=== PATIENT | female | born 1955 | race Caucasian/White ===

== ENCOUNTER 2020-05-17 11:29 | Inpatient (IN) | payer OTHER, MEDICARE ==
[~2020-05-17] VITALS: Ht 160 cm; Wt 63.0 kg
[2020-05-17 11:37] VITALS: BP 129/96
[2020-05-17] MEDS ORDERED: BLOOD PRESSURE MED (11:41)
[2020-05-17 12:28] LABS: ABSOLUTE LYMPHOCYTES 1.1 thou/uL (0.8-5.3); ABSOLUTE MONOCYTES 1.1 thou/uL (0.0-1.2); ABSOLUTE NEUTROPHILS 11.5 thou/uL (1.6-8.1); BASOPHILS 0.2 %; EOSINOPHILS 0.1 %; HEMATOCRIT 40.7 % (37.0-47.0); HEMOGLOBIN 13.9 gm/dL (12.0-15.0); MCHC 34.3 g/dL (28.0-37.0); MCV 93.3 fL (80.0-100.0); MONOCYTES 7.9 %; MPV 8.2 fl. (7.2-11.1); NUCLEATED RBCS 0 /100WBC; PLATELET COUNT* 204 thou/uL (150-400); POLYS 83.8 %; RBC 4.36 mil/uL (4.20-5.00); RDW-CV 13.4 % (10.5-14.5); WBC 13.7 thou/uL (4.0-11.0)
[2020-05-17 12:58] LABS: CALCIUM 8.8 mg/dL (8.5-10.1); CREATININE 0.8 mg/dL (0.6-1.3); POTASSIUM 3.6 mmol/L (3.5-5.1)
[2020-05-17 13:03] LABS: ALBUMIN 3.4 g/dL (3.4-5.0); TOTAL BILIRUBIN 0.6 mg/dL (<0.1-1.0); TOTAL PROTEIN 7.4 g/dL (6.4-8.2)
[2020-05-17 14:15] VITALS: BP 124/72
[2020-05-17 14:19] LABS: URINE BILIRUBIN NEGATIVE (Negative); URINE BLOOD NEGATIVE (Negative); URINE CLARITY CLEAR; URINE COLOR YELLOW; URINE GLUCOSE-RANDOM NEGATIVE (Negative); URINE KETONES 1+ (Negative); URINE LEUKOCYTES-REFLEX NEGATIVE (Negative); URINE NITRITE-REFLEX NEGATIVE (Negative); URINE PROTEIN NEGATIVE (Negative); URINE UROBILINOGEN 0.2 E.U./dl (0.2-1.0)
[2020-05-17 14:25] VITALS: BP 110/63
[2020-05-17] MEDS ORDERED: LISINOPRIL-HCT1 EACH PO (15:59)
[2020-05-17 16:00] VITALS: BP 91/50
[2020-05-17] MEDS ORDERED: CRESTOR20 MG PO (16:00)
--- NOTE | 2020-05-17 16:00 | EKG ---
[place] [address] ELECTROCARDIOGRAM REPORT Name: MANAN WOODELL Room: [address] ADM IN ..#: [id number] Admission: 05/17/20 Attend Phys: Tess Amaya, Discharge: Date of : 59 Date of Service: 05/17/20 1147 Report #: [id number] THIS REPORT FOR: //name// [facility] ED Test Date: 2020-05-17 Test Time: 11:47:23 Pat Name: MANAN WOOD Department: Room: [facility] Gender: F Business Unit Director: TERI : 1955 Requested By: Thang Coombs Order Number: [id number] MD: Estevan Boucher Measurements Intervals [place] Rate: 115 P: 68 CT: 129 QRS: 24 QRSD: 90 T: 42 QT: 315 QTc: 436 Interpretive Statements Sinus tachycardia Low voltage, extremity leads Abnormal R-wave progression, early transition Baseline wander in lead(s) II,III,aVF,V4 No previous ECG available for comparison Electronically Signed On 05-17-2020 16:00:11 CDT by Estevan Boucher [email or web address] <ELECTRONICALLY SIGNED> By: Estevan Boucher MD, FACC 05/17/20 1600 1147 1147 Estevan Boucher MD, FACC /EPI
[2020-05-17 19:30] VITALS: BP 112/51
[2020-05-18 00:30] VITALS: BP 100/58
[2020-05-18 06:09] LABS: HEMATOCRIT 33.8 % (37.0-47.0); MCH 32.1 pg (26.0-34.0); MCHC 34.3 g/dL (28.0-37.0); MCV 93.6 fL (80.0-100.0); MPV 8.9 fl. (7.2-11.1); RBC 3.62 mil/uL (4.20-5.00); RDW-CV 13.7 % (10.5-14.5); WBC 9.1 thou/uL (4.0-11.0)
[2020-05-18 06:14] LABS: HEMOGLOBIN 11.6 gm/dL (12.0-15.0)
[2020-05-18 06:27] LABS: ALBUMIN 2.6 g/dL (3.4-5.0); CALCIUM 8.2 mg/dL (8.5-10.1); CREATININE 0.8 mg/dL (0.6-1.3); MAGNESIUM 1.9 mg/dL (1.8-2.4); POTASSIUM 3.4 mmol/L (3.5-5.1); TOTAL BILIRUBIN 0.4 mg/dL (<0.1-1.0); TOTAL PROTEIN 6.1 g/dL (6.4-8.2)
[2020-05-18 07:50] VITALS: BP 111/62
[2020-05-18 11:38] VITALS: BP 91/50
[2020-05-18 16:00] VITALS: BP 94/58
[2020-05-18 19:30] VITALS: BP 124/64
[2020-05-19] VITALS: BP 102/51
[2020-05-19 04:00] VITALS: BP 110/62
[2020-05-19 05:51] LABS: ABSOLUTE EOSINOPHILS 0.2 thou/uL (0.0-0.7); ABSOLUTE LYMPHOCYTES 1.7 thou/uL (0.8-5.3); ABSOLUTE MONOCYTES 0.7 thou/uL (0.0-1.2); ABSOLUTE NEUTROPHILS 4.7 thou/uL (1.6-8.1); BASOPHILS 0.5 %; EOSINOPHILS 2.7 %; HEMATOCRIT 33.7 % (37.0-47.0); HEMOGLOBIN 11.5 gm/dL (12.0-15.0); LYMPHOCYTES 23.6 %; MCH 32.2 pg (26.0-34.0); MCHC 34.1 g/dL (28.0-37.0); MCV 94.3 fL (80.0-100.0); MONOCYTES 8.9 %; MPV 9.2 fl. (7.2-11.1); NUCLEATED RBCS 0 /100WBC; PLATELET COUNT* 174 thou/uL (150-400); POLYS 64.3 %; RBC 3.58 mil/uL (4.20-5.00); RDW-CV 13.7 % (10.5-14.5); WBC 7.3 thou/uL (4.0-11.0)
[2020-05-19 06:03] LABS: CALCIUM 8.9 mg/dL (8.5-10.1); CREATININE 0.8 mg/dL (0.6-1.3); POTASSIUM 3.7 mmol/L (3.5-5.1)
[2020-05-19 08:00] VITALS: BP 132/64
[2020-05-19 12:00] VITALS: BP 112/63
[2020-05-19 16:00] VITALS: BP 114/74
[2020-05-19 19:30] VITALS: BP 110/55
[2020-05-20] VITALS: BP 120/69
[2020-05-20 04:00] VITALS: BP 124/62
[2020-05-20 05:06] LABS: ABSOLUTE BASOPHILS 0.1 thou/uL (0.0-0.2); ABSOLUTE EOSINOPHILS 0.1 thou/uL (0.0-0.7); ABSOLUTE LYMPHOCYTES 1.9 thou/uL (0.8-5.3); ABSOLUTE MONOCYTES 0.8 thou/uL (0.0-1.2); ABSOLUTE NEUTROPHILS 7.5 thou/uL (1.6-8.1); BASOPHILS 0.5 %; EOSINOPHILS 0.7 %; HEMOGLOBIN 10.9 gm/dL (12.0-15.0); LYMPHOCYTES 18.2 %; MCH 32.1 pg (26.0-34.0); MCHC 34.1 g/dL (28.0-37.0); MONOCYTES 7.8 %; MPV 8.4 fl. (7.2-11.1); NUCLEATED RBCS 0 /100WBC; PLATELET COUNT* 201 thou/uL (150-400); POLYS 72.8 %; RBC 3.41 mil/uL (4.20-5.00); RDW-CV 13.7 % (10.5-14.5); WBC 10.3 thou/uL (4.0-11.0)
[2020-05-20 05:30] LABS: CALCIUM 8.5 mg/dL (8.5-10.1); CREATININE 0.7 mg/dL (0.6-1.3); POTASSIUM 3.5 mmol/L (3.5-5.1)
[2020-05-20 08:00] VITALS: BP 140/70
[2020-05-20] MEDS ORDERED: PREDNISONE 10 M10 MG PO (09:35)
[2020-05-20] MEDS ORDERED: CEFDINIR300 MG PO (09:35)
[2020-05-20 10:40] VITALS: BP 140/70
[2020-05-20] MEDS ORDERED: TESSALON PERLE100 MG PO (10:47)
== END 2020-05-20 11:08 | disposition home or self-care (01) | DRG 177 ==
LOC: M.ERS 11:29 → M.2W 13:58 → M.TBA-ER 13:58 → M.2W 14:36
PROVIDERS: Family Medicine; Internal Medicine; Nurse Practitioner Family; ADMIT Internal Medicine; ATTEND Internal Medicine
DX: J15.6 Pneumonia due to other Gram-negative bacteria (principal); J96.01 Acute respiratory failure with hypoxia; R65.11 Systemic inflammatory response syndrome (SIRS) of non-infectious origin with acute organ dysfunction; I10 Essential (primary) hypertension; E78.00 Pure hypercholesterolemia, unspecified; H91.3 Deaf nonspeaking, not elsewhere classified; E78.5 Hyperlipidemia, unspecified; N39.3 Stress incontinence (female) (male); Z20.828 Contact with and (suspected) exposure to other viral communicable diseases; Z28.21 Immunization not carried out because of patient refusal; Z87.891 Personal history of nicotine dependence; Z90.710 Acquired absence of both cervix and uterus